=== PATIENT | female | born 1960 | race Caucasian/White ===

== ENCOUNTER 2018-10-28 08:30 | Day surgery (SDC) | payer BC ==
--- NOTE | 2018-10-28 06:29 | History and Physical - [place] ---
CHIEF COMPLAINT/HISTORY OF CHIEF COMPLAINT: This patient presents with a history of intractable lumbar radiculopathy. Due to the failure of therapy on 04/03/10 a spinal cord stimulator implant was performed although through time the system appeared to be working quite well she was evaluated over the last number of weeks to month and found that the system was not working and that she was requesting it be removed. PAST MEDICAL HISTORY: Noncontributory. PAST SURGICAL HISTORY: Hernia repair, carpal tunnel release, and spinal cord stimulator implant. MEDICATIONS ON ADMISSION: List to be provided. ALLERGIES: VICODIN. FAMILY/PSYCHOSOCIAL HISTORY: Social history - Smoking and social alcohol. Family history - Thyroid disease, diabetes, and coronary artery disease. SYSTEMS REVIEW: The patient is appropriate in no acute distress. The remainder of the systems review is positive for chronic bronchitis, bladder dysfunction, depression, difficulty sleeping, and degenerative arthritis. PHYSICAL EXAMINATION: Height is 5'7", weight is 120. Vital signs not available. HEENT: Within normal limits. LUNGS: Clear. HEART: Rapid and regular. ABDOMEN: Nontender. MUSCULOSKELETAL: Examination of the musculoskeletal system shows the two incisions one left and one right of midline at T12-L1 for peripheral nerve stimulators and the generator at the left posterior gluteal margin, all incisions are intact. Primary pain pattern low back and bilateral leg. NEUROLOGIC: Cranial nerves are intact. IMPRESSION: 1. LUMBAR RADICULOPATHY, ICD-10 CODE M54.16 AND M54.17. 2. PERIPHERAL NERVE STIMULATOR AND INTERNAL GENERATOR, NONFUNCTIONAL. PLAN: The patient is here for removal of the nonfunctional system, leads and generator. The procedure will be considered outpatient although an overnight stay will be evaluated. JOB NUMBER: [id number] [facility]
[~2018-10-28 08:30] MED LIST: ACETAMINOPHEN 1,000 MG/100 ML BTL IVPB ONE; CEFAZOLIN 2 Gram 2 GM/50 ML BAG IVPB ONE; FAMOTIDINE 20MG TABLET PO ONE; MECLIZINE 25 MG TABLET PO ONE; METOCLOPRAMIDE 10 MG TABLET PO ONE
[2018-10-28] MEDS ORDERED: PROPOFOL 10 MG/ML VIAL IV ONE (08:31)
[2018-10-28] MEDS ORDERED: MIDAZOLAM HCL 2MG/2ML VIAL IV ONE (08:31)
[2018-10-28] MEDS ORDERED: FENTANYL PF 100MCG/2ML VIAL IV ONE (08:31)
[2018-10-28] MEDS ORDERED: CEFAZOLIN 1G VIAL IVP ONE (08:31)
[2018-10-28] MEDS ORDERED: LIDOCAINE 2% MDV (20MG/ML) 20ML VIAL IV ONE (08:31)
[2018-10-28] MEDS ORDERED: ALBUTEROL SULFATE (0.083%) 2.5 MG/3 ML NEB INH ONE (09:00)
[2018-10-28] MEDS ORDERED: RINGERS SOLUTION,LACTATED 1,000 ML IV ONE (09:20)
[2018-10-28] MEDS ORDERED: BUPIVACAINE 0.5% W/EPI MPF 30 ML VIAL SQ ONE (10:38)
[2018-10-28] MEDS ORDERED: LIDOCAINE 1% W/EPI 1:100,000 MDV 20 ML VIAL SQ ONE (10:38)
--- NOTE | 2018-11-02 13:11 | Operative Note ---
DATE OF SURGERY: 10/28/2018 PREOPERATIVE DIAGNOSES: 1. Lumbar radiculopathy, ICD10 code M54.16 and M54.17. 2. Peripheral nerve stimulator with internal generator nonfunctional. OPERATION: 1. Fluoroscopic-guided incision, subcutaneous dissection, and removal of implanted peripheral nerve stimulators x2. 2. Incision, subcutaneous dissection, and removal of internal pulse generator and interface connections to leads. SURGEON: Jarod Henderson DO ANESTHESIA: Local with sedation. ANESTHESIA PROVIDER: Hema Whitman INDICATION: This patient presents with a history of intractable lumbar radiculopathy. Due to the failure of therapies in 2010, a 2-lead peripheral nerve stimulator with internal generator was implanted. Over the years, the system appeared to be working well. Subsequently improved overall pain control, flexibility, and mobility. The system became nonfunctional. She was given the option after evaluation to revise, replace, or remove. She opted to remove. PROCEDURE: Intravenous line, vital sign monitoring, IV sedation. Prepped and draped and sterile technique. Patient positioned prone. Sterile prep and sterile technique. The 2 incisions slightly off the midline one left and one right for the peripheral nerve stimulators implanter were marked. Infiltrated, incision made, and subcutaneous dissection was conducted to the leads. Anchoring suture removed and then leads removed intact. Electrodes accounted for. At the left posterior gluteal margin generator pouch, skin infiltrated, incision made, subcutaneous dissection was conducted to the generator pouch, which was opened. The generator and its connections to the leads removed intact. Antibiotic irrigation. Bovie for hemostasis. The 3 incisions were closed using a 2-0 Vicryl for the fascial layer and a 3-0 Stratafix suture for skin. A Dermabond closure was then used to approximate the edges of both wounds. She was transported to the recovery room stable. No side effects from the procedure or sedation. When fully awake and alert, she was prepared for discharge. DISCHARGE INSTRUCTIONS: 1. Sites to remain clean and dry although the Dermabond will allow showering. She should not sit in water. 2. Standard medications resumed including the antibiotic Levaquin. She will take 500 mg once a day for 14 days. 3. Office to contact the patient in the next 12-24 hours to set up a time in the next 7-10 days to evaluate the sites. Until then, she is to keep her activities low and controlled. All other instructions provided. Numbers to contact if problems given. She was then discharged. [facility]
== END 2018-10-28 11:40 | disposition home or self-care (01) ==
LOC: SUR 08:30
PROVIDERS: ATTEND Pain Medicine Interventional Pain Medicine
DX: T85.193A Other mechanical complication of implanted electronic neurostimulator, generator, initial encounter (principal); M54.17 Radiculopathy, lumbosacral region; J44.9 Chronic obstructive pulmonary disease, unspecified; F17.210 Nicotine dependence, cigarettes, uncomplicated
CPT/HCPCS: 63661; 63688; 01936; 94640; J3010; J0690; J7120; J7613